=== PATIENT | female | born 1965 | race American Indian/Alaskan Native ===

== ENCOUNTER 2018-12-08 15:29 | Emergency (ER) | payer OTHER ==
[2018-12-08 15:48] VITALS: BP 140/83
[2018-12-08] MEDS ORDERED: ASPIRIN PO ONE (15:48)
--- NOTE | 2018-12-08 15:50 | Emergency Department Report ---
Chief Complaint: Chest Pain Stated Complaint: LIGHT HEADED AND CHESTPAIN Time Seen by Provider: 12/08/18 15:47 - HPI History of Present Illness: This is a 53 y.o. female that presents with chest pain and dizziness x 1 week that increased today. - Exam Vital Signs: Vital Signs 12/08/18 15:47 Temperature 98.1 F Pulse Rate 93 H Respiratory 20 Rate Blood Pressure 140/83 O2 Sat by Pulse 100 Oximetry MSE screening note: Focused history and physical exam performed. Due to findings the following was ordered: Labs, ekg, & cxr ED Disposition for MSE Condition: Stable
[2018-12-08 16:16] LABS: Basophils % (Auto) 0.9 % (0.0-1.8); Eosinophils % (Auto) 0.9 % (0.0-4.3); Hemoglobin 11.8 gm/dl (10.1-14.3); Lymphocytes % (Auto) 38.5 % (13.4-35.0); Mean Corpuscular HGB Conc 34 % (30-34); Mean Corpuscular Volume 89 fl (79-97); Monocytes # (Auto) 0.5 K/mm3 (0.0-0.8); Monocytes % (Auto) 9.1 % (0.0-7.3); Platelet Count 282 K/mm3 (140-440); Red Blood Count 3.92 M/mm3 (3.65-5.03); Red Cell Distribution Width 13.9 % (13.2-15.2)
[2018-12-08 16:49] LABS: BUN/Creatinine Ratio 14; Blood Urea Nitrogen 13 mg/dL (7-17); Calcium 9.9 mg/dL (8.4-10.2); Hemolysis Index 3
--- NOTE | 2018-12-08 17:25 | XRay Report ---
PROCEDURES: XR CHEST 1V AP TECHNIQUE: AP portable view of the chest. HISTORY: Chest Pain COMPARISON: None FINDINGS: Lines, tubes, and devices: N/A Lungs and pleura: Trachea is normal in position. Lungs are clear of infiltrate, pleural effusion, vas cular congestion, or pneumothorax. Cardiomediastinal silhouette: Cardiac and mediastinal silhouettes are unremarkable. Other: Bony structures are intact. IMPRESSION: No acute cardiopulmonary process seen. This document is electronically signed by Jessica Leyva MD., December 08 2018 05:23:14 PM ET
[2018-12-08] MEDS ORDERED: ALUM-MAG HYDROX-SIMETH 200-200-20MG/5ML PO ONE (17:59)
[2018-12-08] MEDS ORDERED: LIDOCAINE VISCOUS 2% PO ONE (17:59)
[2018-12-08] MEDS ORDERED: BENTYL ONE (18:06)
[2018-12-08] MEDS ORDERED: LIDOCAINE VISCOUS 2% ONE (18:06)
--- NOTE | 2018-12-08 19:16 | Emergency Department Report ---
ED Chest Pain HPI - General Chief Complaint: Chest Pain Stated Complaint: LIGHT HEADED AND CHESTPAIN Time Seen by Provider: 12/08/18 15:47 Source: patient Mode of arrival: Ambulatory Limitations: No Limitations - History of Present Illness Initial Comments: Pt is a 53 yo female who presents to the ED with c/o diffuse chest pain radiating to the back that began one week ago. She describes the pain as a burning and aching. The patient denies any radiation down the arm or into the neck or jaw. She denies any SOB, heavy lifting, or N/V. The patient states she has a hx of GERD and is supposed to be taking pantoprazole and ranitidine. She states she has not been taking it like she is supposed to. She states she previously had her acid reflux under control but she has gained 21 pounds and been eating fried foods. She states she is also currently going through menopause. She denies any cardiac hx. She denies any hx of DM or elevated lipids. She states her only family cardiac hx is a grandfather with a GA in his late 60s. She denies any recent long car or plane ride, no immobilization, no OCP use, no recent surgery. Severity scale (0 -10): 8 - Related Data Allergies Allergy/AdvReac Type Severity Reaction Status Date / Time No Known Allergies Allergy Unverified 12/08/18 15:30 Heart Score - HEART Score History: Slightly suspicious EKG: Normal Age: 45-65 Risk factors: 1-2 risk factors Troponin: < normal limit HEART Score: 2 ED Review of Systems ROS: Stated complaint: LIGHT HEADED AND CHESTPAIN Other details as noted in HPI Comment: All other systems reviewed and negative ED Past Medical Hx - Past Medical History Hx GERD: Yes - Surgical History Past Surgical History?: No - Social History Smoking Status: Never Smoker Substance Use Type: Alcohol ED Physical Exam - General Limitations: No Limitations General appearance: alert, in no apparent distress - Head Head exam: Present: atraumatic, normocephalic - Eye Eye exam: Present: normal appearance - ENT ENT exam: Present: mucous membranes moist - Respiratory Respiratory exam: Present: normal lung sounds bilaterally. Absent: respiratory distress, wheezes, rales, rhonchi, stridor, chest wall tenderness, accessory muscle use, decreased breath sounds, prolonged expiratory - Cardiovascular Cardiovascular Exam: Present: regular rate, normal rhythm, normal heart sounds. Absent: systolic murmur, rubs, gallop - GI/Abdominal GI/Abdominal exam: Present: soft. Absent: distended, tenderness - Neurological Exam Neurological exam: Present: alert, oriented X3 - Psychiatric Psychiatric exam: Present: normal affect, normal mood - Skin Skin exam: Present: warm, dry, intact ED Course Vital Signs 12/08/18 15:47 Temperature 98.1 F Pulse Rate 93 H Respiratory 20 Rate Blood Pressure 140/83 O2 Sat by Pulse 100 Oximetry - Reevaluation(s) Reevaluation #1: 12/08/18 19:30 s/p GI cocktail pt states her pain has completely resolved TEVIN score - Tevin Score Age > 65: (0) No Aspirin use within the Past 7 Days: (0) No 3 or more CAD Risk Factors: (0) No 2 or more Angina events in past 24 hrs: (0) No Known CAD with more than 50% Stenosis: (0) No Elevated Cardiac Markers: (0) No ST Deviation Greater than 0.5mm: (0) No TEVIN Score: 0 ED Medical Decision Making - Lab Data Result diagrams: 12/08/18 15:56 12/08/18 15:56 - EKG Data -: EKG Interpreted by [facility] EKG shows normal: sinus rhythm, axis, intervals, QRS complexes, ST-T waves Rate: normal - Radiology Data Radiology results: report reviewed HISTORY: Chest Pain COMPARISON: None FINDINGS: Lines, tubes, and devices: N/A Lungs and pleura: Trachea is normal in position. Lungs are clear of infiltrate, pleural effusion, vascular congestion, or pneumothorax. Cardiomediastinal silhouette: Cardiac and mediastinal silhouettes are unremarkable. Other: Bony structures are intact. IMPRESSION: No acute cardiopulmonary process seen. This document is electronically signed by Jessica Leyva MD., December 08 2018 05:23:14 PM ET - Medical Decision Making Pt is a 53 yo female who presents to the ED with c/o diffuse chest pain radiating to the back that began one week ago. She describes the pain as a burning and aching. The patient denies any radiation down the arm or into the neck or jaw. She denies any SOB, heavy lifting, or N/V. The patient states she has a hx of GERD and is supposed to be taking pantoprazole and ranitidine. She has no cardiac hx. No PE/DVT risk factors. EKG normal. CXR normal. Trop negative x2. Chest pain does not appear to be cardiac in nature. Pts pain completely resolved after one GI cocktail. Advised pt to take her GERD medication daily and to follow a diet for GERD. Advised to follow up with PCP in the next 2 days. Follow up with GI if continue to have issues with GERD. Return to the ED for any new or worsening symptoms. - Differential Diagnosis GERD, Costochrondritis, Muscle Strain, GA Critical care attestation.: If time is entered above; I have spent that time in minutes in the direct care of this critically ill patient, excluding procedure time. ED Disposition Clinical Impression: Chest pain Qualifiers: Chest pain type: unspecified Qualified Code(s): R07.9 - Chest pain, unspecified GERD (gastroesophageal reflux disease) Qualifiers: Esophagitis presence: esophagitis presence not specified Qualified Code(s): K21.9 - Gastro-esophageal reflux disease without esophagitis Disposition: TO HOME OR SELFCARE Is pt being admited?: No Does the pt Need Aspirin: No Condition: Stable Instructions: Chest Pain (ED), Diet for Ulcers and Gastritis (ED), Gastroesophageal Reflux Disease (ED) Additional Instructions: Follow up with your primary care doctor in the next 2 days. Take your acid reflux medication as prescribed. Follow the diet for acid reflux. If continue to have issues with acid reflux follow up with [facility]. Return to the emergency room with any new or worsening symptoms. Referrals: ARAMIS DÍAZ MD [Primary Care Provider] - 2-3 Days [facility] [Provider Group] - as needed Time of Disposition: 20:54 Print Language: GRENADIAN
[2018-12-08] MEDS ORDERED: BENTYL PO ONE (20:00)
== END 2018-12-08 21:00 | disposition home or self-care (01) ==
LOC: ED 15:29
DX: R07.89 Other chest pain (principal); K21.9 Gastro-esophageal reflux disease without esophagitis; Z78.0 Asymptomatic menopausal state
CPT/HCPCS: 36415; 71045; 80048; 84484; 85025; 93005; 93010